=== PATIENT | male | born 1960 | race Caucasian/White ===

== ENCOUNTER 2017-09-25 08:09 | Emergency (ER) | payer MEDICAID, OTHER ==
[~2017-09-25] VITALS: Ht 170.2 cm; Wt 81.6 kg
--- NOTE | 2017-09-25 08:40 | Emergency Room Report ---
History of Present Illness General Chief Complaint: Medication Refill Source: Patient Present Illness HPI 57 year old male with a history of hypertension, bipolar disorder, schizophrenia , chronic pain, [facility]. He reports he was admitted to [facility] and discharged last week where he had all his meds, but then he either lost somewhere they were stolen. He cannot tell me what his blood pressure meds are , but he reports Seroquel, Klonopin, and [place]. He denies suicidal, homicidal ideations. He is actually calm and cooperative and not reporting anything specific other than having pain all over. Allergies: Coded Allergies: PENICILLINS (Verified Allergy, Unknown, 09/25/17) Uncoded Allergies: COMPAZINE (Allergy, Unknown, 09/25/17) PHENAERGAN (Allergy, Unknown, 09/25/17) Patient History Past Medical History: see triage record Reviewed Nursing Documentation: PMH: Agreed; PSxH: Agreed Nursing Documentation-PMH Past Medical History: No History, Except For Hx Hypertension: Yes Hx Diabetes: Yes History Of Psychiatric Problem: Yes - bi-polar depression anxiety schitzo Review of Systems All Other Systems: negative except mentioned in HPI Physical Exam Vital Signs Date Time Temp Pulse Resp B/P (MAP) Pulse Ox O2 Delivery O2 Flow Rate FiO2 09/25/17 08:15 98.4 105 18 151/97 96 Room Air 98.4 Sp02 EP Interpretation: reviewed, normal General Appearance: no apparent distress, alert, non-toxic Head: normocephalic Eyes: bilateral eye normal inspection, bilateral eye PERRL, bilateral eye EOMI ENT: normal ENT inspection, hearing grossly normal, normal pharynx, no angioedema, normal voice, moist mucus membranes Neck: normal inspection, full range of motion, supple, supple/symm/no masses Respiratory: chest non-tender, lungs clear, normal breath sounds, chest symmetrical, palpation of chest normal Cardiovascular #1: normal peripheral pulses, regular rate, rhythm, tachycardia - only slightly Cardiovascular #2: 2+ radial (R), 2+ radial (L) Gastrointestinal: normal inspection, non tender, soft, no mass, no guarding, no rebound Rectal: deferred Genitourinary: normal inspection, no CVA tenderness Musculoskeletal: back normal, gait/station normal, normal range of motion, non- tender, no calf tenderness Neurologic: alert, responsive, coating inspector III-XII nml as tested, motor strength/tone normal, sensory intact, speech normal Psychiatric: judgement/insight normal, memory normal, mood/affect normal, no suicidal/homicidal ideation Skin: normal color, no rash, warm/dry, normal turgor Lymphatic: no adenopathy Medical Decision Making Diagnostic Impression: Primary Impression: Encounter for medication refill ER Course Patient was given 1mg of PO ativan and 1 tab of 5/325 norco, his HR of 100 bpm improved, he was given food, and discharged without prescriptions. Patient's glucose is within normal limits, electrolytes are fairly unremarkable other than having sodium slightly elevated in the 140s, he was given by mouth fluids, a meal, and discharged. Although his AST is slightly high I do suspect that he may have been drinking. He was not having abdominal pain or focal quadrant tenderness or any abdominal tenderness at that. He'll be discharged as mentioned. Rhythm Strip Diag. Results Rhythm Strip Time: 08:39 EP Interpretation: yes Rate: 104 Rhythm: NSR, no PVC's, no ectopy Last Vital Signs Date Time Temp Pulse Resp B/P (MAP) Pulse Ox O2 Delivery O2 Flow Rate FiO2 09/25/17 08:15 98.4 105 18 151/97 96 Room Air 98.4 Disposition: HOME, SELF-CARE Patient Instructions: Medicine Refill at the Emergency Department PATTIE BOWEN M.D Sep 25, 2017 08:40
[2017-09-25] MEDS ORDERED: LORazepam 1mg tab ORAL ONE (08:45)
[2017-09-25] MEDS ORDERED: Norco 5mg/325mg tab ORAL ONE (08:45)
[2017-09-25 08:55] LABS: BASOPHILS % (AUTO) 0.7 % (0.0-2.0); EOSINOPHILS % (AUTO) 1.1 % (0.0-3.0); HEMATOCRIT 46.2 % (42.0-52.0); HEMOGLOBIN 14.9 G/DL (14.2-18.0); LYMPHOCYTES % (AUTO) 22.2 % (20.0-45.0); MEAN CORPUSCULAR VOLUME 85 FL (80-99); MONOCYTES % (AUTO) 8.4 % (1.0-10.0); NEUTROPHILS % (AUTO) 67.6 % (45.0-75.0); PLATELET COUNT 293 K/UL (150-450); RED BLOOD COUNT 5.42 M/UL (4.70-6.10); RED CELL DISTRIBUTION WIDTH 13.3 % (11.6-14.8); WHITE BLOOD COUNT 8.1 K/UL (4.8-10.8)
[2017-09-25 09:12] LABS: ANION GAP 12 mmol/L (5-15); BLOOD UREA NITROGEN 23 mg/dL (7-18); CALCIUM 10.1 MG/DL (8.5-10.1); CARBON DIOXIDE 26 MMOL/L (21-32); CHLORIDE 109 MMOL/L (98-107); POTASSIUM 3.5 MMOL/L (3.5-5.1); SODIUM 147 MMOL/L (136-145)
[2017-09-25 09:16] VITALS: BP 155/105
[2017-09-25 09:17] LABS: ALANINE AMINOTRANSFERASE 70 U/L (12-78); ALBUMIN 4.2 G/DL (3.4-5.0); ALBUMIN/GLOBULIN RATIO 0.9 (1.0-2.7); ALKALINE PHOSPHATASE 81 U/L (46-116); ASPARTATE AMINO TRANSFERASE 172 U/L (15-37); BILIRUBIN,TOTAL 0.8 MG/DL (0.2-1.0)
[2017-09-25] MEDS ORDERED: ATENOLOL50 MG ORAL (09:35)
[2017-09-25] MEDS ORDERED: Atenolol 25mg tab ONE (09:37)
[2017-09-25 09:55] VITALS: BP 155/105
== END 2017-09-25 09:55 | disposition home or self-care (01) ==
LOC: EMR 08:59
DX: Z76.0 Encounter for issue of repeat prescription (principal); I10 Essential (primary) hypertension; E11.9 Type 2 diabetes mellitus without complications; F20.9 Schizophrenia, unspecified; Z88.0 Allergy status to penicillin
CPT/HCPCS: 36415; 80053; 85025; 99283